=== PATIENT | male | born 1975 | race Caucasian/White ===

== ENCOUNTER 2016-04-23 23:52 | Emergency (ER) | payer MEDICAID ==
[2016-04-24 00:24] LABS: BASOPHILS 0.2 % (0.0-2.0); EOSINOPHILS 2.1 % (0-7); HEMATOCRIT 43.1 % (42.0-54.0); HEMOGLOBIN 15.6 g/dL (13.5-17.5); IMMATURE GRANULOCYTES 0.2 % (0-5); LYMPHOCYTES 25.8 % (15-50); MCH 31.1 pg (26.0-34.0); MCHC 36.2 g/dL (31.0-37.0); MEAN PLATELET VOLUME 9.5 fL (7.4-10.4); MONOCYTES 7.4 % (2-11); NEUTROPHILS 64.3 % (40-80); PLATELET COUNT 233 10x3/uL (130-400); RBC 5.01 10x6/uL (4.20-6.10); RDW 12.3 % (11.5-14.5); WBC 9.2 10x3/uL (4.8-10.8)
[2016-04-24 00:40] LABS: ALKALINE PHOSPHATASE 98 U/L (46-116); ALT (SGPT) 26 U/L (10-68); AMYLASE - SERUM 38 U/L (25-115); BILIRUBIN - TOTAL 0.41 mg/dL (0.2-1.3); CALC OSMOLALITY 282 mosm/kg (275-300); CALCIUM 9.6 mg/dL (8.5-10.1); CARBON DIOXIDE 30.7 mmol/L (21.0-32.0); CHLORIDE - SERUM 98 mmol/L (98-107); GLUCOSE 327 mg/dL (74-106); LIPASE 254 U/L (73-393); POTASSIUM - SERUM 4.2 mmol/L (3.5-5.1); PROTEIN - SERUM 7.2 g/dL (6.4-8.2); SODIUM 135 mmol/L (136-145); UREA NITROGEN 13 mg/dL (7-18); eGFR NON AFRICAN AMERICAN 87 mL/min (90-120)
== END 2016-04-24 01:26 | disposition home or self-care (01) ==
LOC: D.ER 23:52
PROVIDERS: Emergency Medicine; Nurse Practitioner Acute Care
DX: R10.9 Unspecified abdominal pain (principal); R11.10 Vomiting, unspecified; E11.9 Type 2 diabetes mellitus without complications; I10 Essential (primary) hypertension

== ENCOUNTER 2016-07-05 23:16 | Emergency (ER) | payer MEDICAID | END 2016-07-06 02:45 | disposition home or self-care (01) | LOC: D.ER 23:16 | DX: M70.31 Other bursitis of elbow, right elbow (principal); Y93.89 Activity, other specified; I10 Essential (primary) hypertension; E11.9 Type 2 diabetes mellitus without complications ==

== ENCOUNTER 2016-07-07 20:42 | Emergency (ER) | payer MEDICAID ==
[2016-07-07 23:23] LABS: BASOPHILS 0.5 % (0.0-2.0); EOSINOPHILS 1.6 % (0-7); HEMATOCRIT 49.1 % (42.0-54.0); HEMOGLOBIN 16.7 g/dL (13.5-17.5); IMMATURE GRANULOCYTES 0.5 % (0-5); LYMPHOCYTES 36.8 % (15-50); MCH 33.1 pg (26.0-34.0); MCV 97.4 fL (80.0-100.0); MEAN PLATELET VOLUME 10.9 fL (7.4-10.4); MONOCYTES 6.7 % (2-11); NEUTROPHILS 53.9 % (40-80); RBC 5.04 10x6/uL (4.20-6.10); RDW 14.4 % (11.5-14.5); WBC 10.5 10x3/uL (4.8-10.8)
[2016-07-07 23:26] LABS: PLATELET COUNT 298 10x3/uL (130-400)
[2016-07-07 23:35] LABS: ALBUMIN 3.6 g/dL (3.4-5.0); ALKALINE PHOSPHATASE 155 U/L (46-116); ALT (SGPT) 41 U/L (10-68); BILIRUBIN - TOTAL 0.25 mg/dL (0.2-1.3); CALC OSMOLALITY 282 mosm/kg (275-300); CALCIUM 9.2 mg/dL (8.5-10.1); CARBON DIOXIDE 29.9 mmol/L (21.0-32.0); CHLORIDE - SERUM 102 mmol/L (98-107); GLUCOSE 101 mg/dL (74-106); PROTEIN - SERUM 7.7 g/dL (6.4-8.2); SODIUM 141 mmol/L (136-145); UREA NITROGEN 17 mg/dL (7-18); eGFR NON AFRICAN AMERICAN 87 mL/min (90-120)
== END 2016-07-07 23:23 | disposition left against medical advice (07) ==
LOC: D.ER 20:42
PROVIDERS: Physician Assistant Medical
DX: L03.114 Cellulitis of left upper limb (principal)

== ENCOUNTER 2018-11-26 21:50 | Emergency (ER) | payer SELFPAY ==
[~2018-11-26] VITALS: Ht 175.3 cm; Wt 76.4 kg
[2018-11-26 22:06] VITALS: Ht 175.3 cm; Wt 76.4 kg
[2018-11-26] MEDS ORDERED: BAYER CHEWABLE81 MG PO (22:08)
[2018-11-26] MEDS ORDERED: GLUCOTROL 5 MG T5 MG PO (22:08)
[2018-11-26 22:20] LABS: BASOPHILS 0.2 % (0-2); EOSINOPHILS 1.8 % (0-7); HEMOGLOBIN 14.2 g/dL (13.5-17.5); IMMATURE GRANULOCYTES 0.1 % (0-5); LYMPHOCYTES 32.7 % (15-50); MCHC 37.4 g/dL (31.0-37.0); NEUTROPHILS 57.2 % (40-80); RBC 4.58 10x6/uL (4.20-6.10); RDW 12.5 % (11.5-14.5); WBC 8.9 10x3/uL (4.8-10.8)
[2018-11-26 22:21] LABS: PLATELET COUNT 213 10x3/uL (130-400)
[2018-11-26 22:32] LABS: ALBUMIN 3.9 g/dL (3.4-5.0); ALKALINE PHOSPHATASE 83 U/L (46-116); ALT (SGPT) 16 U/L (10-68); BILIRUBIN - TOTAL 0.33 mg/dL (0.2-1.3); CALC OSMOLALITY 283 mosm/kg (275-300); CALCIUM 9.5 mg/dL (8.5-10.1); CARBON DIOXIDE 30.3 mmol/L (21.0-32.0); CHLORIDE - SERUM 104 mmol/L (98-107); GLUCOSE 167 mg/dL (74-106); POTASSIUM - SERUM 4.1 mmol/L (3.5-5.1); SODIUM 140 mmol/L (136-145); UREA NITROGEN 16 mg/dL (7-18); eGFR NON AFRICAN AMERICAN 86 mL/min (90-120)
[2018-11-26 22:44] LABS: CKMB 0.8 U/L (0.0-3.6); CREATINE KINASE 72 UL (21-232); TROPONIN-I < 0.017 ng/mL (0.000-0.060)
[2018-11-26] MEDS ORDERED: VOLTAREN75 MG PO (23:13)
[2018-11-26] MEDS ORDERED: HYDROCODON-ACE1 EAC7 PO (23:13)
[2018-11-27 00:32] VITALS: BP 164/82
== END 2018-11-27 00:33 | disposition home or self-care (01) ==
LOC: D.ER 21:50
PROVIDERS: Emergency Medicine
DX: M54.12 Radiculopathy, cervical region (principal); S13.4XXA Sprain of ligaments of cervical spine, initial encounter; W18.30XA Fall on same level, unspecified, initial encounter; Y93.89 Activity, other specified; Y92.89 Other specified places as the place of occurrence of the external cause